=== PATIENT | female | born 1960 | race Caucasian/White ===

== ENCOUNTER 2017-09-23 07:25 | Outpatient (CLI) | payer BC ==
--- NOTE | 2017-09-23 09:12 | ULT ---
ULTRASOUND ABDOMEN COMPLETE: HISTORY: A 57-year-old female with elevated liver enzymes. TECHNIQUE: Carias-scale ultrasound evaluation of the liver, gallbladder, spleen, pancreas, common bile duct, kidn eys, abdominal aorta, and inferior vena cava (IVC). FINDINGS: The gallbladder has normal wall thickness and has no evidence of gallstones or sludge. The hepatic echogenicity is diffusely increased, consistent with fatty liver. The kidneys have normal echogenic ity, and there is no hydronephrosis. There is no splenomegaly. There is no abdominal aortic aneury sm. No free fluid is identified. The inferior vena cava is visualized. The pancreas is visualized , although ultrasound is relatively insensitive for pancreatic pathology compared to CT and MRI. The re is no biliary dilation. The common duct caliber is 3 mm. IMPRESSION: 1) Hepatic steatosis. 2) Otherwise negative. jn [] POS: LIZA
== END 2017-09-23 07:26 | disposition home or self-care (01) ==
LOC: ULT 07:25
PROVIDERS: ATTEND Family Medicine
DX: R79.89 Other specified abnormal findings of blood chemistry (principal); K76.0 Fatty (change of) liver, not elsewhere classified
CPT/HCPCS: 76700

== ENCOUNTER 2018-12-17 12:42 | Emergency (ER) | payer OTHER ==
--- NOTE | 2018-12-17 13:42 | RAD ---
LEFT TOES FOUR VIEWS: History: Toe swelling and pain. Third toe turning purple. FINDINGS: There are some minimal arthritic changes present. There are no signs of fracture. No periosteal bony changes are seen. IMPRESSION: No acute findings. POS: LIZA
== END 2018-12-17 13:41 | disposition home or self-care (01) ==
LOC: SCSER 12:42
DX: S90.121A Contusion of right lesser toe(s) without damage to nail, initial encounter (principal); Z79.899 Other long term (current) drug therapy; X58.XXXA Exposure to other specified factors, initial encounter

== ENCOUNTER 2019-06-05 08:22 | Inpatient (IN) | payer OTHER ==
[2019-06-05] MEDS ORDERED: predniSONE 20 MG TAB ONE (09:00)
[2019-06-05] MEDS ORDERED: Azithromycin 500 MG VIAL ONE (09:00)
--- NOTE | 2019-06-05 09:25 | RAD ---
EXAM: Single view of the chest HISTORY: Cough and dyspnea COMPARISON: 05/23/2006 FINDINGS: Single view of the chest shows a normal sized cardiomediastinal silhouette. There is no major dence of consolidation, mass, or pleural effusion. The bones are unremarkable. IMPRESSION: No evidence of acute cardiopulmonary disease
[2019-06-05 09:28] LABS: #Basophils 0.1 thou/uL (0.0-0.2); #Eosinphils 0.2 thou/uL (0.0-0.7); #Lymphocytes 2.1 thou/uL (1.20-3.40); #Monocytes 0.8 thou/uL (0.11-0.59); #Neutrophils 6.6 thou/uL (1.40-6.50); %Basophils 1.1 % (0.0-1.0); %Eosinophils 2.2 % (0.0-10.0); %Lymphocytes 21.6 % (21.0-51.0); %Neutrophils 67.1 % (42.0-75.0); Hemoglobin 14.5 g/dL (12.0-16.0); Mean Corpuscular HGB CONC 34.9 g/dL (32.0-36.0); Mean Platelet Volume 7.8 fL (7.4-10.4); Platelet Count 269 thou/uL (130-400); RBC Distribution Width 12.4 % (11.5-14.5); Red Blood Cell (RBC) Count 4.84 mill/uL (4.20-5.40); White Blood Cell (WBC) Count 9.9 thou/uL (4.8-10.8)
[2019-06-05 09:36] LABS: ALT (SGPT) 36 U/L (8-55); AST (SGOT) 22 U/L (5-34); Albumin 4.2 g/dL (3.5-5.0); Alkaline Phosphatase 87 U/L (40-150); Anion Gap 14 mmol/L (10-20); BUN (Urea Nitrogen) 9 mg/dL (9.8-20.1); Bilirubin, Total 0.6 mg/dL (0.2-1.2); CK (CPK) 91 U/L (29-168); Calc. Creatinine Clearance 0 mL/min (70-130); Calcium 9.1 mg/dL (7.8-10.44); Carbon Dioxide 22 mmol/L (22-29); Chloride 111 mmol/L (98-107); Estimated GFR-MDRD 83; Globulin 2.6 g/dL (2.4-3.5); Glucose 106 mg/dL (70-105); Potassium 3.6 mmol/L (3.5-5.1); Protein, Total 6.8 g/dL (6.0-8.3); Sodium 143 mmol/L (136-145)
--- NOTE | 2019-06-05 09:41 | CT ---
EXAM: CTA of the chest HISTORY: Shortness of breath and cough COMPARISON: None TECHNIQUE: Multiple contiguous axial images were obtained a CTA of the chest with contrast per pulmon nupur embolism protocol. 3-D oblique MIP reformats and direct coronal reformats were performed. FINDINGS: HEART: Normal in size without focal cardiac abnormality. PULMONARY ARTERIES: Normal in caliber without filling defects to suggest pulmonary emboli. MEDIASTINUM: No hilar or mediastinal lymphadenopathy. LUNGS: Airspace opacity is seen in the left lower lobe. There is a 1.6 cm masslike region in this are a of airspace opacity. PLEURAL SPACE: No pleural effusion or pneumothorax. CHEST WALL SOFT TISSUES: Unremarkable VISUALIZED OSSEOUS STRUCTURES: Mild degenerative changes in the spine. VISUALIZED SUBDIAPHRAGMATIC STRUCTURES: Fatty liver IMPRESSION: 1. No evidence of pulmonary thromboembolism 2. Airspace opacity in the left lower lobe likely represents an infiltrate. There is an area that is masslike and following to resolution is recommended to exclude an underlying malignancy. 3. Fatty liver
[2019-06-05] MEDS ORDERED: cefTRIAXone\\ROCEPHIN 2 GM VIAL ONE (10:33)
[2019-06-05] MEDS ORDERED: Sodium Chloride 0.9% 100 ML ONE (10:33)
[2019-06-05] MEDS ORDERED: Iopamidol 370 76% 100 ML VIAL ONE (12:10)
[2019-06-05 12:20] VITALS: BMI 40.0
[2019-06-05] MEDS ORDERED: Acetaminophen 325 MG TAB PO PRN ×2 (12:22→15:05)
[2019-06-05] MEDS ORDERED: Bacteriostatic Water 30 ML VIAL FS PRN (12:25)
[2019-06-05] MEDS ORDERED: hydrALAZINE 20 MG/ML VIAL SLOW IVP PRN (15:05)
[2019-06-05] MEDS ORDERED: Ondansetron PF 4 MG/2 ML Vial IVP PRN (15:05)
[2019-06-05] MEDS ORDERED: Ondansetron ODT 4 MG TAB PO PRN (15:05)
[2019-06-05] MEDS ORDERED: HYDROcodone/Acetaminophen 5/325 mg Tablet PO PRN (15:05)
[2019-06-05] MEDS ORDERED: Ibuprofen 200 MG TAB PO PRN (15:05)
[2019-06-05] MEDS ORDERED: methylPREDNISolone Sod Succ/PF 125 MG/2 ML VIAL IVP SCH (15:30)
--- NOTE | 2019-06-05 15:45 | HP ---
PRIMARY CARE PHYSICIAN: Dr. Hsu at [facility]. CHIEF COMPLAINT: Coughing and having right-sided chest pain. HISTORY OF PRESENT ILLNESS: Ms. Wolf is a pleasant 58-year-old female who presented to the emergency room complaining of cough and she says along with a cough, she was having pain in the right side. She says that she has been having the pain since Saturday. She says that she went to the [facility] and they diagnosed her with a bronchitis. She was prescribed Augmentin and then was discharged. She says that she did not really get that much better and in a few days later, she went and saw her primary care physician. This time, they did a chest x-ray and said that she had a pneumonia and the antibiotic was changed to doxycycline. She says that the following day, it got a little bit better, but then on yesterday, her symptoms started to return. She felt much worse. She was feeling out of breath and noticing a pain on the right side of her chest, and for this reason, she came to the [place] ER. There, she was evaluated. This time, she had a CT angiogram of the chest due to concerns for pulmonary embolism. The CTA was negative for PE, but it did verify a left lower lobe infiltrate and there was also some concern for a mass-like lesion that could be obscured by the area of infiltrate. She says that she has been having these symptoms actually off and on for about a month, and she denies any fever or chills, no nausea and no vomiting , and she does note a slight decrease in her appetite. REVIEW OF SYSTEMS: CONSTITUTIONAL: Again, there is no fevers, no chills, no night sweats, and no weight loss. HEENT: No headache. No dizziness. No visual changes. No sore throat, rhinorrhea, neck pain, or adenopathy. PULMONARY: As in the history of present illness and also there is no hemoptysis. CARDIOVASCULAR: She denies any chest pain. No shortness of breath. No PND. No orthopnea. GASTROINTESTINAL: No abdominal pain. No nausea. No vomiting. No change in bowels. GENITOURINARY: No urinary frequency, hematuria. No hesitancy. NEUROLOGIC: No focal weakness or numbness. No seizures. PSYCHIATRIC: No symptoms of anxiety or depression. SKIN AND INTEGUMENT: No skin changes. No rash. ENDOCRINOLOGY: No heat or cold intolerance, no polyuria or polydyspsea PAST MEDICAL HISTORY: Significant for obstructive sleep apnea, obesity, left bundle branch block, nonischemic cardiomyopathy. She says she has been having syncope recently, but it has been under evaluation by Dr. Feliciano as well as Dr. Ledezma and it was attributed to exhaustion. She also has history of myasthenia gravis. PAST SURGICAL HISTORY: She has had bilateral tubal ligation. ALLERGIES: NO KNOWN DRUG ALLERGIES. SOCIAL HISTORY: She is . Her recently passed this past September. She is a nonsmoker, but she says she was exposed to secondhand smoke from her . Denies any alcohol use. CODE STATUS: Full code. FAMILY HISTORY: Significant for lung cancer in her grandmother. Her uncle had esophageal cancer. CURRENT MEDICATIONS: Include; 1. Azathioprine 50 mg twice a day. 2. Lasix 40 mg daily. 3. Prednisone as directed. 4. Entresto 97/103 mg twice a day. 5. Mestinon 60 mg t.i.d. PHYSICAL EXAMINATION: GENERAL: She is alert and oriented. She appears to be in no acute distress. She is well developed and well nourished. VITAL SIGNS: Blood pressure 157/98, heart rate 111, respiratory rate of 22, temperature is 97.6, and O2 saturation is 94% on 2 L. HEENT: Her pupils are equal, round, and reactive. Extraocular muscles are intact. Her sclerae anicteric. Throat, there is no erythema and no exudates. NECK: No adenopathy. No bruits. LUNGS: She has wheezing bilaterally in both lungs as well as some rales at the base. CARDIOVASCULAR: She has a normal S1 and S2. There is no S3 or S4. No murmurs, clicks, or rubs. ABDOMEN: Obese. It is soft. It is nontender and nondistended. Positive for bowel sounds. There is no rebound. No guarding. EXTREMITIES: She has trace pedal edema. There is no calf tenderness. No joint effusions. NEUROLOGICAL: The exam is nonfocal. SKIN AND INTEGUMENT: There are no skin changes. No rashes. LABORATORY DATA: Sodium is 143, potassium 3.6, chloride is 111, CO2 is 22, BUN of 9, creatinine 0.72, and glucose is 106. Troponin is less than 0.010. CBC; the white blood cell count is 9.9, hemoglobin 14.5, hematocrit is 41.6, and platelet count is 269. Chest X-ray demonstrates an infiltrate in the left base, and borderline enlarged heart size, by my reading ASSESSMENT: 1. Community Acquired Pneumonia. This is a pleasant 58-year-old female who presents to the emergency room with cough and shortness of breath. She has infiltrates on CT angiogram. She has failed outpatient therapy and there is also concerns for possible mass-like lesion on CT scan. For these reasons, she is being admitted to the medical floor. We will continue treatment for community-acquired pneumonia. Also consult Pulmonology for further recommendations. 2. Ischemic cardiomyopathy. This appears to be clinically compensated. We will continue Entresto. She reports that her ejection fraction has come to close to normal since being on Entresto. 3. Myasthenia gravis. Continue Mestinon as well as her home dose of steroids of prednisone. 4. She will be placed on deep vein thrombosis as well as gastrointestinal prophylaxis. Job ID: [id number] [facility]
[2019-06-05] MEDS: azaTHIOprine 50 MG TAB PO SCH (21:06)
[2019-06-05] MEDS: Famotidine 20 MG TAB PO SCH (21:06)
[2019-06-05] MEDS: Pyridostigmine Bromide IR 60 MG TAB PO SCH (21:07)
[2019-06-05] MEDS: Sacubitril 49 MG/Valsartan 51 MG TABLET PO SCH (21:07)
[2019-06-06 05:11] LABS: #Basophils 0.1 thou/uL (0.0-0.2); #Eosinphils 0.1 thou/uL (0.0-0.7); #Monocytes 1.1 thou/uL (0.11-0.59); #Neutrophils 5.8 thou/uL (1.40-6.50); %Basophils 0.5 % (0.0-1.0); %Eosinophils 0.7 % (0.0-10.0); %Lymphocytes 30.2 % (21.0-51.0); %Monocytes 10.7 % (0.0-10.0); Hemoglobin 13.5 g/dL (12.0-16.0); Mean Corpuscular HGB CONC 34.4 g/dL (32.0-36.0); Mean Corpuscular Hemoglobin 30.9 pg (27.0-31.0); Mean Platelet Volume 7.8 fL (7.4-10.4); Platelet Count 258 thou/uL (130-400); RBC Distribution Width 12.5 % (11.5-14.5); Red Blood Cell (RBC) Count 4.37 mill/uL (4.20-5.40); White Blood Cell (WBC) Count 10.1 thou/uL (4.8-10.8)
[2019-06-06 05:22] LABS: Anion Gap 13 mmol/L (10-20); BUN (Urea Nitrogen) 12 mg/dL (9.8-20.1); Calc. Creatinine Clearance 166 mL/min (70-130); Calcium 8.7 mg/dL (7.8-10.44); Carbon Dioxide 20 mmol/L (22-29); Chloride 110 mmol/L (98-107); Estimated GFR-MDRD 78; Glucose 110 mg/dL (70-105); Potassium 3.4 mmol/L (3.5-5.1); Sodium 140 mmol/L (136-145)
[2019-06-06] MEDS ORDERED: Artificial Tears 18 DROP/0.9 ML EA EYE PRN (08:04)
[2019-06-06] MEDS ORDERED: Sodium Chloride 0.65% Nasal 44 ML BOT EA NARE PRN (08:04)
[2019-06-06] MEDS ORDERED: Loperamide HCl 2 MG CAP PO PRN (08:04)
[2019-06-06] MEDS ORDERED: Cepastat Lozenges 1 LOZ PO PRN (08:04)
[2019-06-06] MEDS ORDERED: Diabetic Tussin 200 MG/10 ML UDCUP PO PRN (08:04)
[2019-06-06] MEDS ORDERED: Temazepam 15 MG CAP PO PRN (08:04)
[2019-06-06] MEDS ORDERED: Loratadine 10 MG TAB PO PRN (08:04)
[2019-06-06] MEDS ORDERED: Senokot S 8.6-50 MG TAB PO PRN (08:04)
[2019-06-06] MEDS ORDERED: Bisacodyl 10 MG SUPP PR PRN (08:04)
[2019-06-06] MEDS: Sacubitril 49 MG/Valsartan 51 MG TABLET PO SCH ×2 (08:30→21:23)
[2019-06-06] MEDS: Famotidine 20 MG TAB PO SCH ×2 (08:31→21:23)
[2019-06-06] MEDS: Furosemide 40 MG TAB PO SCH (08:31)
[2019-06-06] MEDS: Pyridostigmine Bromide IR 60 MG TAB PO SCH ×3 (08:31→21:23)
[2019-06-06] MEDS: azaTHIOprine 50 MG TAB PO SCH ×2 (08:31→21:23)
[2019-06-06] MEDS: Enoxaparin Sodium 40 MG/0.4 ML SYRINGE SC SCH (08:32)
[2019-06-06] MEDS ORDERED: predniSONE 20 MG TAB PO SCH (09:00)
--- NOTE | 2019-06-06 10:35 | PDOC.PN ---
- Subjective Encounter Start Date: 06/06/19 Encounter Start Time: 09:00 -: old records requested/rev Patient seen and examined. No new complaints. No overnight events - Objective Resuscitation Status - Order Detail: 06/05/19 15:00 Resuscitation Status Routine Resuscitation Status: FULL: Full Resuscitation MAR Reviewed: Yes Vital Signs & Weight: Vital Signs (12 hours) Temp Pulse Resp BP Pulse Ox 06/06/19 08:00 97.8 F 72 16 123/79 95 06/06/19 03:17 97.6 F 75 20 137/75 94 L Weight Weight 295 lb I&O: 06/05/19 06/06/19 06/07/19 06:59 06:59 06:59 Intake Total 1000 Balance 1000 Result Diagrams: 06/06/19 04:30 06/06/19 04:30 Radiology Reviewed by me: Yes Phys Exam - Physical Examination Constitutional: NAD HEENT: PERRLA, moist MMs, sclera anicteric Neck: no JVD, supple Respiratory: no wheezing, no rales, no rhonchi obesity limiting exam Cardiovascular: RRR, no significant murmur, no rub Gastrointestinal: soft, non-tender, no distention, positive bowel sounds morbid obesity+ Musculoskeletal: no edema, pulses present Neurological: non-focal, normal sensation, moves all 4 limbs Lymphatic: no nodes Psychiatric: normal affect, A&O x 3 Skin: no rash, normal turgor Dx/Plan (1) Community acquired bacterial pneumonia Code(s): J15.9 - UNSPECIFIED BACTERIAL PNEUMONIA Status: Acute (2) Hypokalemia Code(s): E87.6 - HYPOKALEMIA Status: Acute (3) Chronic combined systolic (congestive) and diastolic (congestive) heart failure Code(s): I50.42 - CHRONIC COMBINED SYSTOLIC AND DIASTOLIC HRT FAIL Status: Chronic (4) Fatty liver Code(s): K76.0 - FATTY (CHANGE OF) LIVER, NOT ELSEWHERE CLASSIFIED Status: Chronic (5) Morbid obesity Code(s): E66.01 - MORBID (SEVERE) OBESITY DUE TO EXCESS CALORIES Status: Chronic (6) Myasthenia gravis Code(s): G70.00 - MYASTHENIA GRAVIS WITHOUT (ACUTE) EXACERBATION Status: Chronic (7) Lung mass Code(s): R91.8 - OTHER NONSPECIFIC ABNORMAL FINDING OF LUNG FIELD Status: Suspected - Plan cont current plan of care, continue antibiotics, respiratory therapy * pulmonary consulted for suspected lung mass, will need repeat imaging after antibiotic therapy for resolution * medication reviewed as below * symptomatic treatment * follow culture * home medication reconciled * replace potassium. Review of Systems - Review of Systems ENT: negative: Ear Pain, Ear Discharge, Nose Pain, Nose Discharge, Nose Congestion, Mouth Pain, Mouth Swelling, Throat Pain, Throat Swelling, Other Respiratory: Cough, Wheezing. negative: Dry, Shortness of Breath, Hemoptysis, SOB with Excertion, Pleuritic Pain, Sputum Cardiovascular: negative: chest pain, palpitations, orthopnea, paroxysmal nocturnal dyspnea, edema, light headedness, other Gastrointestinal: negative: Nausea, Vomiting, Abdominal Pain, Diarrhea, Constipation, Melena, Hematochezia, Other Genitourinary: negative: Dysuria, Frequency, Incontinence, Hematuria, Retention , Other Musculoskeletal: negative: Neck Pain, Shoulder Pain, Arm Pain, Back Pain, Hand Pain, Leg Pain, Foot Pain, Other Skin: negative: Rash, Lesions, Michael, Bruising, Other - Medications/Allergies Allergies/Adverse Reactions: Allergies Allergy/AdvReac Type Severity Reaction Status Date / Time No Known Allergies Allergy Verified 08/16/17 16:16 Medications: Current Medications Acetaminophen (Tylenol) 650 mg PO Q4H PRN PRN Reason: Headache/Fever/Mild Pain (1-3) Hydrocodone Bitart/Acetaminophen ([place] 5/325) 1 tab PO Q4H PRN PRN Reason: Moderate Pain (4-6) Artificial Tears (Tears Naturale) 2 drop EA EYE PRN PRN PRN Reason: Dry Eyes Azathioprine (Imuran) 50 mg PO BID [facility] Last Admin: 06/06/19 08:31 Dose: 50 mg Bisacodyl (Dulcolax) 10 mg UT DAILYPRN PRN PRN Reason: Constipation Enoxaparin Sodium (Lovenox) 40 mg SC 0900 [facility] Last Admin: 06/06/19 08:32 Dose: 40 mg Famotidine (Pepcid) 20 mg PO BID [facility] Last Admin: 06/06/19 08:31 Dose: 20 mg Furosemide (Lasix) 40 mg PO DAILY [facility] Last Admin: 06/06/19 08:31 Dose: 40 mg Guaifenesin (Robitussin Sf) 200 mg PO Q4H PRN PRN Reason: Cough Last Admin: 06/06/19 08:44 Dose: 200 mg Hydralazine HCl (Apresoline) 10 mg SLOW IVP Q4H PRN PRN Reason: SBP > 180 and HR < 70 Levofloxacin 750 mg/ Device 150 mls @ 100 mls/hr IVPB 1600 [facility] Last Admin: 06/05/19 15:39 Dose: 150 mls Ibuprofen (Motrin) 400 mg PO Q4H PRN PRN Reason: Fever > 101 Loperamide HCl (Imodium) 2 mg PO PRN PRN PRN Reason: Diarrhea/Loose Stools Loratadine (Claritin) 10 mg PO DAILYPRN PRN PRN Reason: Sinus Symptoms Ondansetron HCl (Zofran Odt) 4 mg PO Q6H PRN PRN Reason: Nausea/Vomiting Ondansetron HCl (Zofran) 4 mg IVP Q6H PRN PRN Reason: Nausea/Vomiting Prednisone (Prednisone) 20 mg PO Q2D [facility] Last Admin: 06/06/19 08:30 Dose: 20 mg Prednisone (Prednisone) 10 mg PO Q2D [facility] Pyridostigmine [place] (Mestinon) 60 mg PO TID [facility] Last Admin: 06/06/19 08:31 Dose: 60 mg Sacubitril/Valsartan (Entresto 49 Mg-51 Mg Tablet) 2 tab PO BID [facility] Last Admin: 06/06/19 08:30 Dose: 2 tab Senna/Docusate Sodium (Senokot S) 2 tab PO BID PRN PRN Reason: Constipation Sodium Chloride (Flush - Normal Saline) 10 ml IVF Q12HR PRN PRN Reason: Saline Flush Sodium Chloride ([place] Nasal [place] 0.65%) 0 ml EA NARE QIDPRN PRN PRN Reason: Nasal Congestion Temazepam (Restoril) 15 mg PO HSPRN PRN PRN Reason: Insomnia Throat Lozenges (Cepastat Lozenges) 1 jeff PO Q2H PRN PRN Reason: Sore Throat
--- NOTE | 2019-06-06 19:06 | CON ---
DATE OF CONSULTATION: 06/06/2019 HISTORY OF PRESENT ILLNESS: Chikis Wolf is a very pleasant 58-year-old female , who has myasthenia gravis. She says she is on 20 mg alternating with 10 of prednisone every other day. She was recently seen within the last few weeks and diagnosed with bronchitis and treated with Augmentin. Then, she was seen at [facility] and told she had pneumonia, was started on a different antibiotic. She has been having right-sided chest discomfort. She is in the emergency room. A CT pulmonary angiogram showed a left lower lobe posterior infiltrate. She subsequently was admitted with a diagnosis of pneumonia. With concern, she says she has a pre-existing cardiomyopathy. Her ejection fraction she says got as low as 35% at one time, but she says her ejection fraction has been up to 50% lately. She has obstructive sleep apnea and wears off CPAP. She has had a left bundle branch block since she was in her 20s. She says she has had multiple episodes of syncope since the beginning of the year. She denies having any type of loop recorder or Holter monitor done to evaluate that. PAST MEDICAL HISTORY: Remarkable for tubal ligation. SOCIAL HISTORY: She is nonsmoker, nondrinker, and nondrug user. ALLERGIES: SHE REPORTS NO DRUG ALLERGIES. FAMILY HISTORY: Positive for cancer. Negative for lung disease in early age. REVIEW OF SYSTEMS: 10 point review of systems completed, otherwise negative. Her main complaint is chest discomfort on the right. She said she has never been told she had asthma. MEDICATIONS: Prior to admission include: 1. Imuran. 2. Lasix. 3. Prednisone 20 alternating with 10 every other day. 4. Entresto. 5. Mestinon. She says she had a workup for thymoma that was negative. PHYSICAL EXAMINATION: GENERAL: She is in no distress. VITAL SIGNS: She is afebrile, heart rate in the 70s, respiratory rates in the teens, oximetry is 96% to 98% on 2 L, and blood pressure 135/78. HEENT: Pupils are equal. Sclerae are anicteric. NECK: Supple. No lymphadenopathy. LUNGS: Remarkable for diffuse coarse wheezes. HEART: Regular rhythm. S1 and S2 are normal. ABDOMEN: Soft and nontender. EXTREMITIES: Without clubbing, cyanosis, or edema. LABORATORY DATA: White count 10.1, hemoglobin 13.5, platelets 258. Electrolytes are unremarkable. Chest radiograph was reviewed. No infiltrate on her x-ray as expected abnormality on her CT is behind her diaphragm. I reviewed the x-ray from June 02, where she was told she had pneumonia. That was a 2-view chest and you could see an abnormality posteriorly on the left. IMPRESSION: Pneumonia. The density at her left base could be malignant, but it has more of a patchy consistency with an infectious problem. I suspect what we were seen on CT now was what we are seeing on chest x-ray 3 days earlier. There is no Urgent Care note from June 02, so I do not know what antibiotic she was started on. Certainly clinically looks stable. She is on 750 of Levaquin now. I think she needs a dose of IV steroids for now. She clearly has at least asthmatic bronchitis. She has to be considered at least a minimally immunocompromised host with a combination of Imuran and prednisone. Nonbacterial causes of pulmonary nodules need to be kept in mind, although I do not feel she needs bronchoscopy at this time. Bronchoscopy would have an increased risk with her bronchospasm. I will be happy to follow the other physicians caring for her. I do think it is reasonable to place all her on a teletypesetter monitor since she tells me that she has not had any type of monitoring to see if any rhythm disturbances or bradycardia detected. TIME SPENT: This is a 70-minute consult, with greater than 50% of the time spent on the unit coordinating care. Job ID: [id number] [facility]
[2019-06-06] MEDS: Doxycycline 100 MG CAP PO SCH (21:22)
[2019-06-07] MEDS ORDERED: methylPREDNISolone Sod Succ/PF 125 MG/2 ML VIAL IVP SCH (09:00)
[2019-06-07] MEDS ORDERED: predniSONE 5 MG TAB PO SCH (09:00)
[2019-06-07] MEDS: azaTHIOprine 50 MG TAB PO SCH ×2 (09:26→22:14)
[2019-06-07] MEDS: Famotidine 20 MG TAB PO SCH ×2 (09:26→22:14)
[2019-06-07] MEDS: Doxycycline 100 MG CAP PO SCH ×2 (09:26→22:14)
[2019-06-07] MEDS: Enoxaparin Sodium 40 MG/0.4 ML SYRINGE SC SCH (09:26)
[2019-06-07] MEDS: Pyridostigmine Bromide IR 60 MG TAB PO SCH ×3 (09:27→22:15)
[2019-06-07] MEDS: Furosemide 40 MG TAB PO SCH (09:27)
[2019-06-07] MEDS: Sacubitril 49 MG/Valsartan 51 MG TABLET PO SCH ×2 (09:28→22:14)
--- NOTE | 2019-06-07 09:37 | PDOC.PN ---
- Subjective Encounter Start Date: 06/07/19 Encounter Start Time: 08:50 Patient seen and examined. No new complaints. No overnight events - Objective Resuscitation Status - Order Detail: 06/05/19 15:00 Resuscitation Status Routine Resuscitation Status: FULL: Full Resuscitation MAR Reviewed: Yes Vital Signs & Weight: Vital Signs (12 hours) Temp Pulse Resp BP Pulse Ox 06/07/19 08:00 97.9 F 116 H 18 118/70 90 L 06/07/19 07:23 54 L 12 06/07/19 03:05 97.4 F L 80 20 114/63 92 L Weight Weight 295 lb I&O: 06/06/19 06/07/19 06/08/19 06:59 06:59 06:59 Intake Total 1000 240 Balance 1000 240 Result Diagrams: 06/06/19 04:30 06/06/19 04:30 EKG Reviewed by me: Yes Phys Exam - Physical Examination Constitutional: NAD HEENT: PERRLA, moist MMs, sclera anicteric Neck: no JVD, supple Respiratory: no rales, wheezing present Cardiovascular: RRR, no significant murmur, no rub Gastrointestinal: soft, non-tender, no distention, positive bowel sounds obesity+ Musculoskeletal: no edema, pulses present Neurological: non-focal, normal sensation, moves all 4 limbs Lymphatic: no nodes Psychiatric: normal affect, A&O x 3 Skin: no rash, normal turgor Dx/Plan (1) Community acquired bacterial pneumonia Code(s): J15.9 - UNSPECIFIED BACTERIAL PNEUMONIA Status: Acute (2) Hypokalemia Code(s): E87.6 - HYPOKALEMIA Status: Acute (3) Chronic combined systolic (congestive) and diastolic (congestive) heart failure Code(s): I50.42 - CHRONIC COMBINED SYSTOLIC AND DIASTOLIC HRT FAIL Status: Chronic (4) Fatty liver Code(s): K76.0 - FATTY (CHANGE OF) LIVER, NOT ELSEWHERE CLASSIFIED Status: Chronic (5) Morbid obesity Code(s): E66.01 - MORBID (SEVERE) OBESITY DUE TO EXCESS CALORIES Status: Chronic (6) Myasthenia gravis Code(s): G70.00 - MYASTHENIA GRAVIS WITHOUT (ACUTE) EXACERBATION Status: Chronic (7) Lung mass Code(s): R91.8 - OTHER NONSPECIFIC ABNORMAL FINDING OF LUNG FIELD Status: Suspected - Plan cont current plan of care, continue antibiotics, respiratory therapy * medication reviewed as below * symptomatic treatment * continue rocephin and doxy * get echo today * monitor on tele * discharge soon. Review of Systems - Review of Systems ENT: negative: Ear Pain, Ear Discharge, Nose Pain, Nose Discharge, Nose Congestion, Mouth Pain, Mouth Swelling, Throat Pain, Throat Swelling, Other Respiratory: Cough, Wheezing. negative: Dry, Shortness of Breath, Hemoptysis, SOB with Excertion, Pleuritic Pain, Sputum Cardiovascular: negative: chest pain, palpitations, orthopnea, paroxysmal nocturnal dyspnea, edema, light headedness, other Gastrointestinal: negative: Nausea, Vomiting, Abdominal Pain, Diarrhea, Constipation, Melena, Hematochezia, Other Genitourinary: negative: Dysuria, Frequency, Incontinence, Hematuria, Retention , Other Musculoskeletal: negative: Neck Pain, Shoulder Pain, Arm Pain, Back Pain, Hand Pain, Leg Pain, Foot Pain, Other Skin: negative: Rash, Lesions, Michael, Bruising, Other - Medications/Allergies Allergies/Adverse Reactions: Allergies Allergy/AdvReac Type Severity Reaction Status Date / Time Quinolones Allergy Verified 06/06/19 17:41 Medications: Current Medications Acetaminophen (Tylenol) 650 mg PO Q4H PRN PRN Reason: Headache/Fever/Mild Pain (1-3) Hydrocodone Bitart/Acetaminophen ([place] 5/325) 1 tab PO Q4H PRN PRN Reason: Moderate Pain (4-6) Albuterol/Ipratropium (Duoneb) 3 ml NEB [id number] [facility] Last Admin: 06/07/19 07:23 Dose: 3 ml Artificial Tears (Tears Naturale) 2 drop EA EYE PRN PRN PRN Reason: Dry Eyes Azathioprine (Imuran) 50 mg PO BID [facility] Last Admin: 06/07/19 09:26 Dose: 50 mg Bisacodyl (Dulcolax) 10 mg MD DAILYPRN PRN PRN Reason: Constipation Doxycycline Hyclate (Vibramycin) 100 mg PO BID [facility] Last Admin: 06/07/19 09:26 Dose: 100 mg Enoxaparin Sodium (Lovenox) 40 mg SC 0900 [facility] Last Admin: 06/07/19 09:26 Dose: 40 mg Famotidine (Pepcid) 20 mg PO BID [facility] Last Admin: 06/07/19 09:26 Dose: 20 mg Furosemide (Lasix) 40 mg PO DAILY [facility] Last Admin: 06/07/19 09:27 Dose: 40 mg Guaifenesin (Robitussin Sf) 200 mg PO Q4H PRN PRN Reason: Cough Last Admin: 06/06/19 08:44 Dose: 200 mg Hydralazine HCl (Apresoline) 10 mg SLOW IVP Q4H PRN PRN Reason: SBP > 180 and HR < 70 Ibuprofen (Motrin) 400 mg PO Q4H PRN PRN Reason: Fever > 101 Loperamide HCl (Imodium) 2 mg PO PRN PRN PRN Reason: Diarrhea/Loose Stools Loratadine (Claritin) 10 mg PO DAILYPRN PRN PRN Reason: Sinus Symptoms Methylprednisolone Sodium Succinate (Solu-Medrol) 80 mg IVP DAILY [facility] Last Admin: 06/07/19 09:27 Dose: 80 mg Ondansetron HCl (Zofran Odt) 4 mg PO Q6H PRN PRN Reason: Nausea/Vomiting Ondansetron HCl (Zofran) 4 mg IVP Q6H PRN PRN Reason: Nausea/Vomiting Pyridostigmine [place] (Mestinon) 60 mg PO TID [facility] Last Admin: 06/07/19 09:27 Dose: 60 mg Sacubitril/Valsartan (Entresto 49 Mg-51 Mg Tablet) 2 tab PO BID [facility] Last Admin: 06/07/19 09:28 Dose: 2 tab Senna/Docusate Sodium (Senokot S) 2 tab PO BID PRN PRN Reason: Constipation Sodium Chloride (Flush - Normal Saline) 10 ml IVF Q12HR PRN PRN Reason: Saline Flush Sodium Chloride ([place] Nasal [place] 0.65%) 0 ml EA NARE QIDPRN PRN PRN Reason: Nasal Congestion Temazepam (Restoril) 15 mg PO HSPRN PRN PRN Reason: Insomnia Throat Lozenges (Cepastat Lozenges) 1 jeff PO Q2H PRN PRN Reason: Sore Throat
--- NOTE | 2019-06-07 13:59 | PRG ---
DATE OF SERVICE: 06/07/2019 SUBJECTIVE: Ms. Wolf says she feels much better, she is in no distress. Surprisingly, with her 1 dose of IV steroids she received yesterday and this morning, the bronchospasm has dramatically improved. OBJECTIVE: VITAL SIGNS: She is afebrile, heart rate is 92, respiratory rate 16, oximetry is 91% to 92% on 1 L cannula, blood pressure 118/70. LUNGS: Clear. HEART: Regular rhythm, S1 and S2 normal. ABDOMEN: Soft and nontender. IMPRESSION: Pneumonia. The density in her left base, I doubt, is malignant. It could be a nonconventional infectious process, but I would continue with antibacterial antibiotics at this point in time and just follow this closely both clinically and as an outpatient with a repeat CT of her chest in 4 to 6 weeks. With regard to multiple episodes of syncope, she is confirmed to me that she has never had any type of long-term Holter monitoring or rhythm disturbance workup. Given her old left bundle-branch block, I think it would be appropriate for her to go home with a Holter. This can be arranged today, so I will just call Dr. Feliciano in the morning who is her basketball scout. She was switched to p.o. antibiotics by the hospitalist today. She will be treated for a few days with a bigger dose of prednisone. She probably needs a nebulizer at home. Hopefully, she will not have recurrence of this outside of the realm of an infection for some time. She is immunocompromised. Job ID: [id number]
[2019-06-08 06:00] LABS: #Lymphocytes 1.8 thou/uL (1.20-3.40); #Neutrophils 9.4 thou/uL (1.40-6.50); %Basophils 0.2 % (0.0-1.0); %Eosinophils 0.2 % (0.0-10.0); %Lymphocytes 14.5 % (21.0-51.0); %Monocytes 8.3 % (0.0-10.0); %Neutrophils 76.8 % (42.0-75.0); Hemoglobin 13.1 g/dL (12.0-16.0); Mean Corpuscular HGB CONC 33.9 g/dL (32.0-36.0); Mean Corpuscular Hemoglobin 30.7 pg (27.0-31.0); Mean Corpuscular Volume 90.6 fL (78.0-98.0); Mean Platelet Volume 8.2 fL (7.4-10.4); Platelet Count 263 thou/uL (130-400); RBC Distribution Width 12.7 % (11.5-14.5); Red Blood Cell (RBC) Count 4.28 mill/uL (4.20-5.40); White Blood Cell (WBC) Count 12.2 thou/uL (4.8-10.8)
[2019-06-08 06:25] LABS: Anion Gap 14 mmol/L (10-20); BUN (Urea Nitrogen) 13 mg/dL (9.8-20.1); Calc. Creatinine Clearance 178 mL/min (70-130); Calcium 8.9 mg/dL (7.8-10.44); Carbon Dioxide 21 mmol/L (22-29); Chloride 107 mmol/L (98-107); Estimated GFR-MDRD 84; Glucose 112 mg/dL (70-105); Potassium 3.7 mmol/L (3.5-5.1); Sodium 138 mmol/L (136-145); Uric Acid 5.1 mg/dL (2.6-6.0)
[2019-06-08] MEDS ORDERED: predniSONE 20 MG TAB PO SCH (08:00)
[2019-06-08] MEDS: Sacubitril 49 MG/Valsartan 51 MG TABLET PO SCH (08:55)
[2019-06-08] MEDS: Doxycycline 100 MG CAP PO SCH (08:56)
[2019-06-08] MEDS: Furosemide 40 MG TAB PO SCH (08:56)
[2019-06-08] MEDS: Pyridostigmine Bromide IR 60 MG TAB PO SCH (08:56)
[2019-06-08] MEDS: azaTHIOprine 50 MG TAB PO SCH (08:56)
[2019-06-08] MEDS: Famotidine 20 MG TAB PO SCH (08:57)
[2019-06-08] MEDS: Enoxaparin Sodium 40 MG/0.4 ML SYRINGE SC SCH (08:57)
--- NOTE | 2019-06-08 09:54 | PRG ---
DATE OF SERVICE: 06/08/2019 SUBJECTIVE: Ms. Wolf says she is feeling better. She had one coughing paroxysm, but overall is much better. OBJECTIVE: VITAL SIGNS: She is afebrile, heart rate 87, respiratory rate 18, oximetry is 92%, and blood pressure 126/66. LUNGS: Clear. HEART: Regular rhythm. S1 and S2, normal. ABDOMEN: Soft and nontender. EXTREMITIES: Without edema. LABORATORY DATA: White count 12.2, hemoglobin 13.1, and platelets 263. Sodium 138, potassium 3.7, chloride 107, bicarb 21, BUN 13, and creatinine 0.7. IMPRESSION: Pneumonia. PLAN: She is being treated as an outpatient with doxycycline. It is unclear whether or not this is working since she got worse, so I have written a prescription for Omnicef for 10 days. She will take 20 mg of prednisone until she is out of her antibiotics, may get it back to 20 mg alternating with 10 mg of prednisone. She will see me in followup for a PA and lateral chest x-ray in a month. Abnormalities visible on the lateral view when she was seen in Urgent Care. If there is a normal x-ray, then we will probably repeat a CT scan in 6 to 8 weeks to document complete clearing of this left lower lobe posterior behind the diaphragm around infiltrate. If this is larger on a radiograph in a month, then we will consider bronchoscopy to rule out nonbacterial pathogens. Job ID: [id number]
[2019-06-08 11:24] VITALS: BP 155/70; TEMP 97.6
--- NOTE | 2019-06-08 11:44 | PDOC.PN ---
- Subjective Encounter Start Date: 06/08/19 Encounter Start Time: 10:00 pt feels improvement, she is concerned about recurrent syncope - Objective Resuscitation Status - Order Detail: 06/05/19 15:00 Resuscitation Status Routine Resuscitation Status: FULL: Full Resuscitation MAR Reviewed: Yes Vital Signs & Weight: Vital Signs (12 hours) Temp Pulse Resp BP BP Pulse Ox 06/08/19 11:17 97.6 F 107 H 20 155/70 H 93 L 06/08/19 10:41 110 H 18 95 06/08/19 08:00 92 L 06/08/19 07:48 97.5 F L 87 18 126/66 92 L 06/08/19 07:19 75 16 92 L 06/08/19 03:40 98.4 F 76 20 117/64 93 L 06/08/19 00:00 98.2 F 83 18 110/50 L 93 L Weight Weight 295 lb I&O: 06/07/19 06/08/19 06/09/19 06:59 06:59 06:59 Intake Total 1660 480 Output Total 1600 Balance 60 480 Result Diagrams: 06/08/19 05:27 06/08/19 05:27 Radiology Reviewed by me: Yes (echo report noted) EKG Reviewed by me: Yes Phys Exam - Physical Examination Constitutional: NAD HEENT: PERRLA, moist MMs, sclera anicteric Neck: no JVD, supple Respiratory: no wheezing, no rales, no rhonchi Cardiovascular: RRR, no significant murmur, no rub Gastrointestinal: soft, non-tender, no distention, positive bowel sounds Musculoskeletal: no edema, pulses present Neurological: non-focal, normal sensation Lymphatic: no nodes Psychiatric: normal affect, A&O x 3 Skin: no rash, normal turgor Dx/Plan (1) Community acquired bacterial pneumonia Code(s): J15.9 - UNSPECIFIED BACTERIAL PNEUMONIA Status: Acute (2) Hypokalemia Code(s): E87.6 - HYPOKALEMIA Status: Acute (3) Chronic combined systolic (congestive) and diastolic (congestive) heart failure Code(s): I50.42 - CHRONIC COMBINED SYSTOLIC AND DIASTOLIC HRT FAIL Status: Chronic (4) Fatty liver Code(s): K76.0 - FATTY (CHANGE OF) LIVER, NOT ELSEWHERE CLASSIFIED Status: Chronic (5) Morbid obesity Code(s): E66.01 - MORBID (SEVERE) OBESITY DUE TO EXCESS CALORIES Status: Chronic (6) Myasthenia gravis Code(s): G70.00 - MYASTHENIA GRAVIS WITHOUT (ACUTE) EXACERBATION Status: Chronic (7) Lung mass Code(s): R91.8 - OTHER NONSPECIFIC ABNORMAL FINDING OF LUNG FIELD Status: Suspected - Plan cont current plan of care, continue antibiotics, respiratory therapy * will consult cardiology for recurrent syncope and worsening of her EF * agree with omnicef * medication reviewed as below * symptomatic treatment. Review of Systems - Review of Systems ENT: negative: Ear Pain, Ear Discharge, Nose Pain, Nose Discharge, Nose Congestion, Mouth Pain, Mouth Swelling, Throat Pain, Throat Swelling, Other Respiratory: negative: Cough, Dry, Shortness of Breath, Hemoptysis, SOB with Excertion, Pleuritic Pain, Sputum, Wheezing Cardiovascular: negative: chest pain, palpitations, orthopnea, paroxysmal nocturnal dyspnea, edema, light headedness, other Gastrointestinal: negative: Nausea, Vomiting, Abdominal Pain, Diarrhea, Constipation, Melena, Hematochezia, Other Genitourinary: negative: Dysuria, Frequency, Incontinence, Hematuria, Retention , Other Musculoskeletal: negative: Neck Pain, Shoulder Pain, Arm Pain, Back Pain, Hand Pain, Leg Pain, Foot Pain, Other Skin: negative: Rash, Lesions, Michael, Bruising, Other - Medications/Allergies Allergies/Adverse Reactions: Allergies Allergy/AdvReac Type Severity Reaction Status Date / Time Quinolones Allergy Verified 06/06/19 17:41 Medications: Current Medications Acetaminophen (Tylenol) 650 mg PO Q4H PRN PRN Reason: Headache/Fever/Mild Pain (1-3) Hydrocodone Bitart/Acetaminophen ([place] 5/325) 1 tab PO Q4H PRN PRN Reason: Moderate Pain (4-6) Albuterol/Ipratropium (Duoneb) 3 ml NEB [id number] [facility] Last Admin: 06/08/19 10:41 Dose: 3 ml Artificial Tears (Tears Naturale) 2 drop EA EYE PRN PRN PRN Reason: Dry Eyes Azathioprine (Imuran) 50 mg PO BID [facility] Last Admin: 06/08/19 08:56 Dose: 50 mg Bisacodyl (Dulcolax) 10 mg IA DAILYPRN PRN PRN Reason: Constipation Cefdinir (Omnicef) 300 mg PO BID [facility] Enoxaparin Sodium (Lovenox) 40 mg SC 0900 [facility] Last Admin: 06/08/19 08:57 Dose: 40 mg Famotidine (Pepcid) 20 mg PO BID [facility] Last Admin: 06/08/19 08:57 Dose: 20 mg Furosemide (Lasix) 40 mg PO DAILY [facility] Last Admin: 06/08/19 08:56 Dose: 40 mg Guaifenesin (Robitussin Sf) 200 mg PO Q4H PRN PRN Reason: Cough Last Admin: 06/06/19 08:44 Dose: 200 mg Hydralazine HCl (Apresoline) 10 mg SLOW IVP Q4H PRN PRN Reason: SBP > 180 and HR < 70 Ibuprofen (Motrin) 400 mg PO Q4H PRN PRN Reason: Fever > 101 Loperamide HCl (Imodium) 2 mg PO PRN PRN PRN Reason: Diarrhea/Loose Stools Loratadine (Claritin) 10 mg PO DAILYPRN PRN PRN Reason: Sinus Symptoms Ondansetron HCl (Zofran Odt) 4 mg PO Q6H PRN PRN Reason: Nausea/Vomiting Ondansetron HCl (Zofran) 4 mg IVP Q6H PRN PRN Reason: Nausea/Vomiting Prednisone (Prednisone) 40 mg PO QAM-WM [facility] Last Admin: 06/08/19 08:56 Dose: 40 mg Pyridostigmine [place] (Mestinon) 60 mg PO TID [facility] Last Admin: 06/08/19 08:56 Dose: 60 mg Sacubitril/Valsartan (Entresto 49 Mg-51 Mg Tablet) 2 tab PO BID [facility] Last Admin: 06/08/19 08:55 Dose: 2 tab Senna/Docusate Sodium (Senokot S) 2 tab PO BID PRN PRN Reason: Constipation Sodium Chloride (Flush - Normal Saline) 10 ml IVF Q12HR PRN PRN Reason: Saline Flush Sodium Chloride ([place] Nasal [place] 0.65%) 0 ml EA NARE QIDPRN PRN PRN Reason: Nasal Congestion Temazepam (Restoril) 15 mg PO HSPRN PRN PRN Reason: Insomnia Throat Lozenges (Cepastat Lozenges) 1 jeff PO Q2H PRN PRN Reason: Sore Throat
--- NOTE | 2019-06-08 14:34 | DIS ---
DATE OF ADMISSION: 06/05/2019 DATE OF DISCHARGE: 06/08/2019 PRIMARY CARE PHYSICIAN: Jacqueline Covarrubias. DISCHARGE DISPOSITION: Home. PRIMARY DISCHARGE DIAGNOSES: 1. Community-acquired bacterial pneumonia. 2. Hypokalemia. SECONDARY DISCHARGE DIAGNOSES: 1. Myasthenia gravis. 2. Morbid obesity with BMI 40. 3. Fatty liver. 4. Chronic combined systolic and diastolic heart failure. PRIMARY PROCEDURE/OPERATION: None. RADIOLOGICAL INVESTIGATION: Chest x-ray, CT angiography, echocardiography. SIGNIFICANT LABORATORY DATA: Hemoglobin 13.1. Creatinine 0.71. DISCHARGE MEDICATIONS: 1. Omnicef 300 mg p.o. b.i.d. for 10 days. 2. Prednisone 20 mg p.o. daily for 10 days and then resume 20 mg and 10 mg alternate day. 3. Mestinon 60 mg t.i.d. 4. DuoNeb q.6 hourly. 5. Entresto one tablet b.i.d. 6. Lasix 40 mg p.o. daily. 7. Imuran 50 mg b.i.d. CONTRAINDICATION: None. CODE STATUS: Full code. INPATIENT BIOLOGIST AIDE: Dr. Estrella. TEST RESULTS PENDING ON DISCHARGE: None. ALLERGIES: QUINOLONE. DISCHARGE PLAN: Posthospital, the patient will follow up with primary care physician. The patient will need repeat chest x-ray and imaging upon followup visit with Dr. Estrella. The patient has appointment with Dr. Feliciano tomorrow. HOSPITAL COURSE: A 58-year-old female, who was admitted by Dr. Gilmna. Please see her H and P for further details. The patient was having cough, shortness of breath, pleuritic chest discomfort. She was diagnosed with pneumonia. She had a chest x-ray and CT angiography that suspected for any mass-like lesion and that is why Dr. Estrella was consulted during this admission. This patient is currently treated with antibiotic therapy and she will need repeat imaging to compare. If the patient does have persistent finding, then Dr. Estrella will decide bronchoscopy versus further imaging. This patient also had worsening of EF and that is why we notified Dr. Feliciano, who saw this patient at bedside and she gave appointment for clinic visit tomorrow. This patient may need further evaluation from cardiomyopathy perspective. I have seen and examined the patient at bedside today. The patient wants to go home today. All consultants cleared her for discharge as well. Please see my progress note from today for further details. Job ID: [id number]
[2019-06-08] MEDS ORDERED: Cefdinir 300 MG CAP PO SCH (21:00)
--- NOTE | 2019-06-09 07:43 | CON ---
DATE OF CONSULTATION: I was asked to see her by Dr. Estrella. HISTORY OF PRESENT ILLNESS: This lady is a very pleasant 58-year-old female who I have been following for quite some time. She has history of cardiomyopathy as well as a history of myasthenia gravis. She was admitted to the hospital due to pneumonia and during her hospital stay, she was seen by Dr. Estrella and explained to him that she has been having episodes of syncope. She has had several episodes of syncope apparently since December. Couple of them were somewhat without symptoms. She has had no significant arrhythmias noted on the monitor at this time. She has actually had a fall about 3 weeks ago. She does have a history of cardiomyopathy. Her ejection fraction has been as low as 35%, recently had been up to about 50%. A repeat echocardiogram again shows ejection fraction has again decreased about 30% to 35%. She has been on medical management and has been in the study for Entresto and has otherwise been doing relatively well, but based on her history of undiagnosed syncope, she will be advised to undergo most likely an implantable loop recorder. I will discuss this with her and if she decides to proceed, we will schedule this as an outpatient for the patient to undergo the procedure. I did not make any changes in her medication. PHYSICAL EXAMINATION: Shows that she is in no acute distress. She did have some coughing during the examination, otherwise, there were no significant abnormalities noted. IMPRESSION: Undiagnosed syncope of uncertain etiology in a lady with cardiomyopathy as well as myasthenia gravis. We will discuss possible loop recorder to determine that whether or not her syncopal episodes are due to bradycardia or arrhythmias or due to hypotension, possible. Job ID: [id number]
== END 2019-06-08 17:48 | disposition home or self-care (01) | DRG 194 ==
LOC: SCSER 08:22 → ERHOLD 10:02 → T4-A 12:31 → 2NO 06-06 12:17
PROVIDERS: ADMIT Internal Medicine; ATTEND Internal Medicine
DX: J15.9 Unspecified bacterial pneumonia (principal); I50.42 Chronic combined systolic (congestive) and diastolic (congestive) heart failure; Z68.41 Body mass index [BMI] 40.0-44.9, adult; G47.33 Obstructive sleep apnea (adult) (pediatric); I25.5 Ischemic cardiomyopathy; E87.6 Hypokalemia; I44.7 Left bundle-branch block, unspecified; K76.0 Fatty (change of) liver, not elsewhere classified; E66.01 Morbid (severe) obesity due to excess calories; R55 Syncope and collapse; R91.8 Other nonspecific abnormal finding of lung field; G70.00 Myasthenia gravis without (acute) exacerbation; Z98.51 Tubal ligation status
CPT/HCPCS: 36415; 71045; 71275; 80048; 80053; 82550; 83605; 83735; 83880; 84443; 84484; 84550; 85025; 87040; 87070; 87205; 93005; 93010; 93306; 94640; 94760; 96365; 96367; J0456; J0696; J1650; J1956; J2930; J3490; J7500; J7512; J7620; Q9967

== ENCOUNTER 2019-08-20 10:51 | Outpatient (CLI) | payer OTHER ==
--- NOTE | 2019-08-20 12:57 | CT ---
CT CHEST WITHOUT CONTRAST: Multiplanar reconstruction. INDICATION: Pneumonia followup. COMPARISON: Comparison is made to CT chest 06/05/2019. Prior CT described confluent infiltrate in the posterior le ft lung base. FINDINGS: The alveolar opacity in the left lung base noted on the prior exam has resolved. There is some resid ual stranding and hazy alveolar density at this location indicating some residual scarring or infiltr ate. The mass-like density noted previously has resolved. There is no effusion. No other evidence of infiltrate. Lung benites otherwise clear. Mediastinum unremarkable. No evidence of adenopathy. Images through upper abdomen unremarkable. IMPRESSION: Resolution of the alveolar infiltrate and consolidation of the left lower lobe when compared to 019. Today's exam shows some residual stranding and haziness at this location. POS: [facility]
== END 2019-08-20 10:52 | disposition home or self-care (01) ==
LOC: BICCT 10:51
PROVIDERS: ATTEND Internal Medicine Critical Care Medicine
DX: J18.9 Pneumonia, unspecified organism (principal); R91.8 Other nonspecific abnormal finding of lung field
CPT/HCPCS: 71250

== ENCOUNTER 2021-03-01 16:03 | Inpatient (IN) | payer BC, OTHER ==
[~2021-03-01 16:03] MED LIST: FLU VACC QS2020-21(6MOS UP)/PF 60 MCG/0.5 ML SYRINGE IM ONE
[2021-03-01 17:43] LABS: #Basophils 0.1 thou/uL (0.0-0.2); #Eosinphils 0.4 thou/uL (0.0-0.7); #Lymphocytes 3.3 thou/uL (1.20-3.40); #Monocytes 0.9 thou/uL (0.11-0.59); #Neutrophils 4.6 thou/uL (1.40-6.50); %Basophils 1.1 % (0.0-1.0); %Eosinophils 4.2 % (0.0-10.0); %Lymphocytes 35.7 % (21.0-51.0); %Monocytes 9.5 % (0.0-10.0); %Neutrophils 49.4 % (42.0-75.0); Hemoglobin 14.5 g/dL (12.0-16.0); Mean Corpuscular HGB CONC 34.9 g/dL (32.0-36.0); Mean Corpuscular Hemoglobin 31.7 pg (27.0-31.0); Mean Corpuscular Volume 90.9 fL (78.0-98.0); Mean Platelet Volume 8.6 fL (7.4-10.4); Platelet Count 224 thou/uL (130-400); Red Blood Cell (RBC) Count 4.59 mill/uL (4.20-5.40); White Blood Cell (WBC) Count 9.3 thou/uL (4.8-10.8)
[2021-03-01 18:05] LABS: Anion Gap 13 mmol/L (10-20); BUN (Urea Nitrogen) 9 mg/dL (9.8-20.1); Calc. Creatinine Clearance 188 mL/min (70-130); Calcium 8.8 mg/dL (7.8-10.44); Carbon Dioxide 21 mmol/L (23-31); Chloride 110 mmol/L (98-107); Glucose 98 mg/dL (80-115); Sodium 140 mmol/L (136-145)
[2021-03-01] MEDS: Sacubitril 49 MG/Valsartan 51 MG TABLET PO SCH (20:49)
[2021-03-02 02:33] LABS: SARS-CoV-2 PCR by NAA Not Detected (NotDetected)
[2021-03-02] MEDS: Sacubitril 49 MG/Valsartan 51 MG TABLET PO SCH ×2 (08:06→22:37)
[2021-03-02] MEDS ORDERED: Vancomycin 1.5 GRAM/300 ML BAG 1.5 GM in Premix Bag 1 BAG IVPB SCH (08:30)
[2021-03-02] MEDS ORDERED: Gentamicin 80 MG/2 ML VIAL ONE (10:23)
[2021-03-02] MEDS ORDERED: CEFAZOLIN 1 GM VIAL ONE (10:23)
[2021-03-02] MEDS ORDERED: Propofol 500 MG/50 ML VIAL ONE ×5 (11:09→14:09)
[2021-03-02] MEDS ORDERED: Midazolam HCl 2 mg/2 ml Vial ONE (11:09)
[2021-03-02] MEDS ORDERED: PHENYLEPHRINE-NS 100 MCG/ML 10 ML SYRINGE ONE (11:09)
[2021-03-02] MEDS ORDERED: PROPOFOL 200 MG/20 ML VIAL ONE ×2 (11:09)
[2021-03-02] MEDS ORDERED: Fentanyl 100 MCG/2 ML VIAL ONE ×2 (11:09→15:55)
[2021-03-02] MEDS ORDERED: Lidocaine 1% (PF) 30 ML VIAL ONE (11:40)
[2021-03-02 13:32] VITALS: BMI 41.0
[2021-03-02] MEDS ORDERED: Iopamidol 370 76% 50 ML VIAL FS ONE (13:40)
[2021-03-02] MEDS ORDERED: Ondansetron PF 4 MG/2 ML Vial ONE (16:10)
[2021-03-02] MEDS ORDERED: OCTAGAM 10% 40 GM in Admixture Fee 1 EACH IVPB SCH (18:00)
[2021-03-02] MEDS: CEFAZOLIN 2 GM in Premix Bag 1 BAG IVPB SCH (18:01)
[2021-03-02] MEDS: HYDROcodone/Acetaminophen 5/325 mg Tablet PO PRN (19:36)
[2021-03-03] MEDS: CEFAZOLIN 2 GM in Premix Bag 1 BAG IVPB SCH (01:59)
[2021-03-03] MEDS: HYDROcodone/Acetaminophen 5/325 mg Tablet PO PRN (02:06)
[2021-03-03] MEDS: Sacubitril 49 MG/Valsartan 51 MG TABLET PO SCH ×2 (10:43→20:57)
[2021-03-03 11:44] LABS: Magnesium 1.8 mg/dL (1.6-2.6); Phosphorus 2.6 mg/dL (2.3-4.7)
[2021-03-03] MEDS: Ondansetron ODT 4 MG TAB PO PRN ×2 (12:14→17:46)
[2021-03-03] MEDS ORDERED: OCTAGAM 10% 40 GM in Admixture Fee 1 EACH IVPB SCH (16:00)
[2021-03-03] MEDS: Acetaminophen 325 MG TAB PO PRN (17:46)
[2021-03-03] MEDS ORDERED: Promethazine HCl 12.5 MG in Sodium Chloride 0.9% 50 ML IVPB SCH (20:15)
[2021-03-04] MEDS: Sacubitril 49 MG/Valsartan 51 MG TABLET PO SCH (08:46)
[2021-03-04] MEDS: Acetaminophen 325 MG TAB PO PRN (08:50)
[2021-03-04] MEDS ORDERED: OCTAGAM 10% 40 GM in Admixture Fee 1 EACH IVPB SCH (14:00)
[2021-03-04 15:59] VITALS: BP 126/72; TEMP 98.9
== END 2021-03-04 17:10 | disposition home or self-care (01) | DRG 242 ==
LOC: 2SW 16:03 → OBSVTOIN 16:59
PROVIDERS: ADMIT Internal Medicine Cardiovascular Disease; ATTEND Internal Medicine Cardiovascular Disease
PROC: 0JH607Z Insertion of Cardiac Resynchronization Pacemaker Pulse Generator into Chest Subcutaneous Tissue and Fascia, Open Approach (ICD-10-PCS; principal; 2021-03-02)
PROC: 02HL3JZ Insertion of Pacemaker Lead into Left Ventricle, Percutaneous Approach (ICD-10-PCS; 2021-03-02)
PROC: 02H63JZ Insertion of Pacemaker Lead into Right Atrium, Percutaneous Approach (ICD-10-PCS; 2021-03-02)
PROC: 02HK3JZ Insertion of Pacemaker Lead into Right Ventricle, Percutaneous Approach (ICD-10-PCS; 2021-03-02)
PROC: 0JPT02Z Removal of Monitoring Device from Trunk Subcutaneous Tissue and Fascia, Open Approach (ICD-10-PCS; 2021-03-02)
PROC: 3E0102A Introduction of Anti-Infective Envelope into Subcutaneous Tissue, Open Approach (ICD-10-PCS; 2021-03-02)
DX: I49.5 Sick sinus syndrome (principal); G70.01 Myasthenia gravis with (acute) exacerbation; I50.42 Chronic combined systolic (congestive) and diastolic (congestive) heart failure; E03.9 Hypothyroidism, unspecified; I42.0 Dilated cardiomyopathy; I44.7 Left bundle-branch block, unspecified; G47.33 Obstructive sleep apnea (adult) (pediatric); Z98.51 Tubal ligation status; Z83.3 Family history of diabetes mellitus; I08.1 Rheumatic disorders of both mitral and tricuspid valves; I45.5 Other specified heart block; Z99.89 Dependence on other enabling machines and devices; Z80.0 Family history of malignant neoplasm of digestive organs; R06.03 Acute respiratory distress; R11.0 Nausea; R11.10 Vomiting, unspecified; Z88.1 Allergy status to other antibiotic agents
CPT/HCPCS: 33208; 33225; 33286; 36005; 36415; 71045; 71046; 75820; 80048; 83735; 84100; 85025; 87635; 93005; 93010; 94760; 97139; C1769; C1898; C1900; C2621; J0690; J1568; J1580; J2001; J2250; J2405; J2550; J2704; J3010; J3370; Q0162; Q9967; U0003; U0005